=== PATIENT | male | born 1990 | race Caucasian/White ===

== ENCOUNTER 2017-02-07 14:01 | Inpatient (IN) | payer OTHER ==
[2017-02-07] MEDS ORDERED: Adacel (T-DAP) 0.5 ML VIAL ONE (14:16)
[2017-02-07] MEDS ORDERED: Fentanyl 100 MCG/2 ML VIAL ONE ×2 (14:22→17:06)
[2017-02-07] MEDS ORDERED: CEFAZOLIN/Water 2 GM/20 ML SYRINGE ONE (14:23)
[2017-02-07 14:30] LABS: Mean Corpuscular HGB CONC 34.1 g/dL (32.0-36.0); Mean Corpuscular Hemoglobin 32.4 pg (27.0-31.0); Mean Corpuscular Volume 95.1 fl (80.0-94.0); Mean Platelet Volume 6.7 fL (7.4-10.4); Platelet Count 350 thou/uL (130-400); RBC Distribution Width 11.7 % (11.5-14.5); Red Blood Cell (RBC) Count 4.33 mill/uL (4.70-6.10); White Blood Cell (WBC) Count 8.2 thou/uL (4.8-10.8)
[2017-02-07 14:32] LABS: Prothrombin Time 13.5 SEC (12.0-14.7)
[2017-02-07 14:46] LABS: ALT (SGPT) 25 U/L (8-55); AST (SGOT) 26 U/L (5-34); Albumin 4.7 g/dL (3.5-5.0); Alkaline Phosphatase 52 U/L (40-150); Anion Gap 14 mmol/L (10-20); BUN (Urea Nitrogen) 19 mg/dL (8.9-20.6); Bilirubin, Total 0.5 mg/dL (0.2-1.2); Calc. Creatinine Clearance 0 mL/min (70-130); Calcium 9.8 mg/dL (7.8-10.44); Carbon Dioxide 25 mmol/L (22-29); Chloride 103 mmol/L (98-107); Estimated GFR-MDRD 70; Globulin 2.7 g/dL (2.4-3.5); Glucose 119 mg/dL (70-105); Potassium 3.6 mmol/L (3.5-5.1); Protein, Total 7.4 g/dL (6.0-8.3); Sodium 138 mmol/L (136-145)
[2017-02-07 14:47] LABS: Lymphocytes 77 % (21-51); MDiff Complete? YES; Monocytes 7 % (0-10); Neutrophil 16 % (42-75); PLT Morphology Comment Appears Adequate
--- NOTE | 2017-02-07 14:53 | RAD ---
CHEST ONE VIEW: History: Trauma. Hand injury. Comparison: None. FINDINGS: Lungs are clear. No pneumothorax or effusion. Cardiac mediastinal contours are within normal limits. No acute osseous abnormality. IMPRESSION: No acute intrathoracic abnormality. POS: [facility]
--- NOTE | 2017-02-07 14:54 | RAD ---
RIGHT WRIST RADIOGRAPH THREE VIEWS: Date: 02-07-17 Provided Clinical History: Right wrist pain status post injury. FINDINGS: There is no evidence for fracture or other acute osseous abnormality. Alignment appears anatomic. Nga nt spaces appear preserved. IMPRESSION: No evidence for an acute osseous abnormality. POS: [facility]
--- NOTE | 2017-02-07 14:55 | RAD ---
RIGHT HAND RADIOGRAPHS THREE VIEWS: Date: 02-07-17 Provided Clinical History: Right hand injury. FINDINGS: No evidence for fracture or other acute osseous abnormality. Alignment appears anatomic. Joint spaces appear preserved. No evidence for radiopaque foreign body. Laceration is noted involving the soft ti ssues between the first and second rays. IMPRESSION: No evidence for fracture or radiopaque foreign body. POS: [facility]
[2017-02-07] MEDS ORDERED: Ketorolac Tromethamine 30 MG/ML VIAL ONE ×2 (15:50→16:37)
[2017-02-07] MEDS ORDERED: Gentamicin 80 MG/2 ML VIAL ONE (15:50)
[2017-02-07] MEDS ORDERED: cloNIDine 0.1 MG TAB ONE (15:51)
[2017-02-07] MEDS ORDERED: Pregabalin 50 MG CAP PO SCH (16:00)
[2017-02-07] MEDS ORDERED: Penicillin G Potassium 3 MILL.UNITS in Sodium Chloride 0.9% 50 ML IVPB SCH (16:00)
[2017-02-07] MEDS ORDERED: Gentamicin Sulfate 80 MG in Premix Bag 1 BAG IVPB ONE (16:00)
[2017-02-07] MEDS ORDERED: ePHEDrine/0.9% NaCl/PF SYRINGE 50 mg/10 ml ONE (16:37)
[2017-02-07] MEDS ORDERED: Glycopyrrolate 0.2 MG/ML 5 ML SYRINGE ONE (16:37)
[2017-02-07] MEDS ORDERED: Succinylcholine Chloride 20 MG/ML 10 ml SYRINGE FS ONE (16:37)
[2017-02-07] MEDS ORDERED: Lidocaine 1% PF 5 ML VIAL ONE (16:37)
[2017-02-07] MEDS ORDERED: Ondansetron HCl/PF 4 MG/2 ML Vial ONE (16:37)
[2017-02-07] MEDS ORDERED: Propofol 200 MG/20 ML VIAL ONE (16:37)
[2017-02-07] MEDS ORDERED: Dexamethasone 20 MG/5 ML VIAL ONE (16:37)
[2017-02-07] MEDS ORDERED: Bupivacaine PF 0.5% 30 ML VIAL ONE (16:56)
[2017-02-07] MEDS ORDERED: Bacitracin Zinc Ointment 30 gm TUBE ONE (16:57)
[2017-02-07] MEDS ORDERED: Hetastarch 6% 500 ML 0 ML ONE (17:19)
[2017-02-07] MEDS ORDERED: Midazolam HCl 2 mg/2 ml Vial ONE (17:36)
[2017-02-07] MEDS ORDERED: Meperidine HCl/PF 25 MG/ML VIAL SLOW IVP PRN (18:28)
[2017-02-07] MEDS ORDERED: Morphine Sulfate 2 MG/ML SYRINGE SLOW IVP PRN (18:28)
[2017-02-07] MEDS ORDERED: HYDROmorphone 2 MG/ML VIAL SLOW IVP PRN (18:28)
[2017-02-07] MEDS ORDERED: Promethazine HCl 25 MG/ML VIAL SLOW IVP PRN (18:28)
[2017-02-07] MEDS ORDERED: Sodium Chloride 0.9% 1,000 ML IV SCH (20:00)
[2017-02-07] MEDS: HYDROcodone/Acetaminophen 7.5/325 mg Tablet PO PRN ×2 (20:58→21:54)
[2017-02-07] MEDS: CEFAZOLIN 1 GM, Syringe 2.5 ML in Sterile Water 7.5 ML SLOW IVP SCH (21:00)
[2017-02-07] MEDS ORDERED: Dextrose 5% in Water 1,000 ML IV PRN (21:06)
[2017-02-07] MEDS ORDERED: Dextrose 50% Abboject 50 ML SYRINGE SLOW IVP PRN (21:06)
[2017-02-07] MEDS: Ascorbic Acid 500 mg Chewable Tablet PO SCH (21:49)
[2017-02-07] MEDS: Pregabalin 50 MG CAP PO SCH (21:50)
[2017-02-07] MEDS: Penicillin G Potassium 3 MILL.UNITS in Sodium Chloride 0.9% 50 ML IVPB SCH (21:51)
[2017-02-07] MEDS: Gentamicin Sulfate 80 MG in Premix Bag 1 BAG IVPB SCH (22:07)
[2017-02-07 22:23] VITALS: BMI 25.4
[2017-02-07] MEDS: Ketorolac Tromethamine 30 MG/ML VIAL IVP SCH (23:28)
--- NOTE | 2017-02-08 00:24 | HP ---
DATE OF ADMISSION: 02/07/2017 ADMITTING PHYSICIAN: Martín Ludwig DO CONSULTING PHYSICIAN: Dr. Jac Granados, Orthopedics. HISTORY OF PRESENT ILLNESS: The patient is a 26-year-old male who was at work today when he sustained a crush injury to his right hand, when his hand was caught in the hydraulics of a backhoe. ER physician reported that the patient arrived with extensive laceration to the right hand with muscle tissue sticking out at the lateral base of his index finger. Range of motion was limited to the right hand and he was unable to be move his hand other from a flexion position. The patient is experiencing numbness and tingling in the hand and fingers. Trauma Service has been consulted for admission and management. Dr. Granados, Orthopedics, has been consulted for fixation of right hand injury. Dr. Granados is currently at bedside and preparing to take patient to the OR. The patient's hand has had dressing applied. PAST MEDICAL HISTORY: The patient denies any significant past medical history. SOCIAL HISTORY: Alcohol socially, weekly. Drug use, none. Tobacco use, none. PAST SURGICAL HISTORY: None. ALLERGIES: No known drug allergies. CURRENT MEDICATIONS: None. REVIEW OF SYSTEMS: Other than as listed above, review of systems is negative. PHYSICAL EXAMINATION: VITAL SIGNS: Blood pressure 119/69, pulse 44, respirations 12, temperature 98.4 , pain 7/10, O2 sat 97% on room air. GENERAL: Well-developed, well-nourished male in no acute distress. HEENT: Normocephalic, atraumatic. PULMONARY: Bilateral breath sounds clear. No respiratory distress. CARDIOVASCULAR: Regular rate and rhythm. Heart sounds normal. ABDOMEN: Soft, nontender, nondistended. EXTREMITIES: Bilateral lower extremities, neurovascularly intact. No trauma noted. Left upper extremity, neurovascularly intact. No trauma noted. Right upper extremity, right hand injury with bulky dressing applied. Range of motion limited to right hand and fingers. Pain with light touch in the right hand and fingers. Decreased sensation in the right hand and fingers. NEUROLOGIC: GCS of 15, awake, alert, oriented x3. DIAGNOSTIC IMAGING: No fractures noted on x-rays. LABORATORY STUDIES: WBC 8.2, hemoglobin 14.0, hematocrit 41.0, and platelets 350. Sodium 138, potassium 3.6, chloride 103, creatinine 1.25. Creatine kinase 206. ASSESSMENT: A 26-year-old male status post crush injury to right hand. PLAN: Dr. Granados has been consulted and is currently at bedside. He is planning emergent surgical intervention for repair of right hand. After discussion with Dr. Granados, the patient will be admitted to the ICU for close neurovascular monitoring. UA and urine myoglobin to be sent. We will trend creatine kinase. IV antibiotics per Dr. Granados's recommendations. Tetanus given in ED. The patient will be admitted to ICU postoperatively. The patient was reviewed with Dr. Ludwig, attending trauma surgeon, who agrees with assessment and plan. ANAND
[2017-02-08] MEDS: Penicillin G Potassium 3 MILL.UNITS in Sodium Chloride 0.9% 50 ML IVPB SCH ×5 (01:07→17:23)
[2017-02-08] MEDS: CEFAZOLIN 1 GM, Syringe 2.5 ML in Sterile Water 7.5 ML SLOW IVP SCH ×4 (02:05→21:27)
[2017-02-08] MEDS: HYDROcodone/Acetaminophen 7.5/325 mg Tablet PO PRN ×4 (02:55→15:44)
[2017-02-08 04:29] LABS: #Monocytes 0.2 thou/uL (0.11-0.59); #Neutrophils 8.2 thou/uL (1.40-6.50); %Basophils 0.1 % (0.0-1.0); %Eosinophils 0.2 % (0.0-10.0); %Lymphocytes 19.5 % (21.0-51.0); %Monocytes 1.8 % (0.0-10.0); %Neutrophils 78.4 % (42.0-75.0); Hemoglobin 12.6 g/dL (14.0-18.0); Mean Corpuscular HGB CONC 33.2 g/dL (32.0-36.0); Mean Corpuscular Hemoglobin 31.9 pg (27.0-31.0); Mean Platelet Volume 7.1 fL (7.4-10.4); Platelet Count 311 thou/uL (130-400); RBC Distribution Width 11.7 % (11.5-14.5); Red Blood Cell (RBC) Count 3.95 mill/uL (4.70-6.10); White Blood Cell (WBC) Count 10.4 thou/uL (4.8-10.8)
[2017-02-08 04:43] LABS: Anion Gap 13 mmol/L (10-20); BUN (Urea Nitrogen) 15 mg/dL (8.9-20.6); Calc. Creatinine Clearance 119 mL/min (70-130); Calcium 9.1 mg/dL (7.8-10.44); Carbon Dioxide 23 mmol/L (22-29); Chloride 106 mmol/L (98-107); Estimated GFR-MDRD 89; Glucose 137 mg/dL (70-105); Potassium 4.4 mmol/L (3.5-5.1); Sodium 138 mmol/L (136-145)
[2017-02-08] MEDS: Ketorolac Tromethamine 30 MG/ML VIAL IVP SCH ×3 (06:09→17:23)
[2017-02-08] MEDS: Gentamicin Sulfate 80 MG in Premix Bag 1 BAG IVPB SCH ×2 (06:10→15:00)
--- NOTE | 2017-02-08 08:24 | OP ---
DATE OF SURGERY: 02/07/2017 TIME: 1924. SURGEON: Jac Granados M.D. ANESTHESIA: Dr. Starkey, anesthesiologist. General LMA technique augmented by 8 mL 0.5% Marcaine wi thout epinephrine block at multiple sites along the wrist and hand. PREOPERATIVE DIAGNOSES: 1. Right first dorsal interosseous muscle avulsion with compartment syndrome post crush right hand s econdary to a backhoe at work. 2. Right wrist fourth carpometacarpal joint, open joint. SPECIMEN REMOVED: Necrotic first web muscle to pathology for both culture and specimen to prove necr osis. ESTIMATED BLOOD LOSS: 25 mL. TOURNIQUET TIME: 15 minutes. FINDINGS: 1. Hematoma approximately 3-5 mL within the carpal canal and a partial tear of the transverse carpal ligament distal one half. 2. Necrotic muscle right first web space. 3. Intact digital nerves, arteries, thumb and index finger: Had normal two-point discrimination and Doppler preop and intraoperatively did not see any lacerations to disprove this. 4. He has a 1.0 cm laceration over the right dorsal fourth and fifth carpometacarpal joint exposed a nd the cartilage chondral surfaces and bony regions. PROCEDURE PERFORMED: 1. Debridement open wrist joint, carpometacarpal joint fourth and fifth with the hamate. 2. Compartment syndrome release, four-digit incision technique. 3. Debridement, first dorsal interosseous muscle. I have reviewed deep debridement [id number]. 4. Evacuation of hematoma, carpal canal. 5. Median nerve neuroplasty at the wrist. COMPLICATIONS: None. INDICATION: Patient had a work accident where he caught his hand against a backhoe and immediately n oticed pain, and he presented to the emergency room with inability to move his digits, posturing and extension, had pain with stretch, small laceration of the dorsum of the hand with swelling in his the davon compartment, first dorsal compartment with exposed muscle belly and laceration of muscle belly at the first dorsal webspace. He had a stretch pain and hyperesthesias indicative of early compartment syndrome. DESCRIPTION OF PROCEDURE: After successful general LMA technique augmented by the Anesthesia listed above, the patient had a timeout done. Appropriate, limb was prepped and draped, and then we exsangu inated the limb, tourniquet inflated to 250 mmHg pressure. We then outlined incisions to use as open wounds on the dorsum to create a 4-5 and a 2-3 incision to release the compartments around this area dorsally, this was done. We connected the laceration down to the dorsal ulnar carpal wrist area, he re we found laceration with extended 2 cm proximal show visible chondral surface of the fourth carpom etacarpal joint through this 2 cm wound, so we then irrigated this with 3 liters normal saline and Pu lsavac pressure with antibiotics inside. We then visualized the dorsal webspace where at the first webspace, the junction of palmar and dorsal skin, there was extruding muscle. This proved to be part of the muscle belly of the duct interosseo us to the index finger. We then abduct to the index finger. We then debrided the muscle to be reach ed viable muscle, which we removed almost 60% of the exposed muscle. We then inspected for dirt part icles. After dirt particles, then began formal irrigation after debridement down to and including de ep muscle and fascia was accomplished. Then, we went and performed the extended median nerve neuropl asty incision beginning of 5 cm proximal to the volar wrist flexion crease and across the wrist in a zigzag pattern down to Mcnamara's cardinal lines. We opened the subcutaneous tissue, visualized the tr anscarpal ligament 50% along with a moderate sized hematoma 3-5 mL. It was evacuated via forceps and irrigation. We released all the distal volar fascia at the wrist level, release transcarpal ligamen t, now the median nerve neuroplasty was completed. We inspected the nerve found to be intact. The h ematoma was now gone, elevated and we performed an adequate debridement of all the open wounds, so we performed the irrigation and released the tourniquet. Here, we will use 5 liters normal salin e and Pulsavac pressure to irrigate and clean the wound with antibiotics inside. The patient had no evidence of loss of circulation. No excessive bleeding except for one dorsal vein ; however, we had made our incision, between the second and third in the metacarpals in the fourth an d fifth and released the compartment either side of each metacarpal including the ulnar aspect of the small and radial aspect index finger. Now, we had complete compartment releases, necrotic muscle de brided. Hematoma evacuated and we irrigated this area with the remaining 2 liters normal saline and Pulsavac pressure. Now, we released the tourniquet, obtained hemostasis, placed a wet to dry packing on all the wounds, covered with 4 x 4s on top with an ABD and then Jesús wrap. The patient had marked improved motion without antalgia in his right upper extremity and phalangeal joints the day be fore surgery and is resting comfortably at the time of this dictation.
[2017-02-08] MEDS: Pregabalin 50 MG CAP PO SCH ×2 (08:52→20:52)
[2017-02-08] MEDS: Ascorbic Acid 500 mg Chewable Tablet PO SCH ×2 (08:54→20:52)
[2017-02-08] MEDS: Morphine 4 MG/ML VIAL SLOW IVP PRN ×2 (09:29→17:50)
[2017-02-08] MEDS: Meperidine HCl/PF 25 MG/ML VIAL IM PRN ×2 (11:47→19:28)
[2017-02-08] MEDS ORDERED: Gentamicin Sulfate 80 MG in Premix Bag 1 BAG IVPB SCH (14:45)
--- NOTE | 2017-02-08 15:48 | PRG ---
DATE OF SERVICE: 02/08/2017 ATTENDING PHYSICIAN: Dr. Martín Ludwig. This is Mary Schultz N.P. dictating a daily progress note for Martín Ludwig D.O. SUBJECTIVE: A 26-year-old male status post crush injury of the right hand. He was taken to the OR last night by Dr. Granados for I&D of the right hand. He has remained hemodynamically stable. His hand has regained some sensation since the operative procedure. Pain is well controlled this a.m. OBJECTIVE: VITAL SIGNS: Temperature 98.1, heart rate 64, respirations 12, O2 sat 100% room air, blood pressure 110/66. GENERAL: Resting in chair. No acute distress. PULMONARY: Respirations are even and unlabored. No respiratory distress. CARDIOVASCULAR: Regular rate and rhythm. Heart sounds normal. ABDOMEN: Soft, nontender, and nondistended. EXTREMITIES: Bilateral lower extremities. Neurovascularly intact. No trauma noted. Left upper extremity neurovascular intact. No trauma noted. Right upper extremity, right hand with bulky dressing. Able to slightly move the fingers. ASSESSMENT: 1. A 26-year-old male status post crush injury to right hand. 2. Status post incision and debridement of right hand wound. PLAN: 1. Transition from IV to oral analgesia. 2. Start regular diet. 3. Transfer out of ICU to surgical floor. 4. Discontinue IV fluids. 5. Antibiotics per orders by Dr. Granados. LABORATORY DATA: WBC 10.4 today, up from 8.2 yesterday. Continue to monitor. Hemoglobin and hematocrit 12.6/37.9 down from 14.0/41.1 yesterday. Continue to monitor. Transfuse as indicated. Creatinine kinase 338 this morning from 206 yesterday. Continue to monitor. The patient was seen and examined by Dr. Ludwig, attending trauma surgeon, who agrees with the assessment and plan. ANAND
[2017-02-08 16:58] LABS: Hemoglobin 13.2 g/dL (14.0-18.0)
[2017-02-08 17:54] LABS: Bilirubin Negative (Negative); Blood, Urine Negative (Negative); Clarity CLEAR (Clear); Glucose, Urine (Dipstick) Negative (Negative); Leukocyte Negative (Negative); Nitrite Negative (Negative); Protein, Urine (Dipstick) Negative (Neg-Trace); Specific Gravity, Urine 1.014 (1.002-1.036); Urobilinogen 0.2 mg/dL (0.2-1.0)
[2017-02-08 18:21] LABS: Bacteria/HPF None Seen HPF (None Seen); Hyaline Casts/LPF NONE SEEN LPF (0-3 Hyaline); RBC/HPF None Seen HPF (0-3); Squamous Epithelial None Seen HPF (0-3); WBC/HPF 0-3 HPF (0-3)
[2017-02-09] MEDS: D5 1/2 NS w/20 mEq KCL 1,000 ML IV SCH ×3 (00:38→22:50)
[2017-02-09] MEDS: Ketorolac Tromethamine 30 MG/ML VIAL IVP SCH ×5 (00:38→19:32)
[2017-02-09] MEDS: CEFAZOLIN 1 GM, Syringe 2.5 ML in Sterile Water 7.5 ML SLOW IVP SCH ×4 (02:18→21:07)
[2017-02-09] MEDS: HYDROcodone/Acetaminophen 7.5/325 mg Tablet PO PRN (02:23)
[2017-02-09 06:09] LABS: Eosinophils 2 % (0-10); Hemoglobin 11.8 g/dL (14.0-18.0); Lymphocytes 42 % (21-51); MDiff Complete? YES; Mean Corpuscular Volume 96.9 fl (80.0-94.0); Mean Platelet Volume 6.9 fL (7.4-10.4); Monocytes 6 % (0-10); Neutrophil 50 % (42-75); PLT Morphology Comment Appears Adequate; Platelet Count 252 thou/uL (130-400); RBC Distribution Width 11.6 % (11.5-14.5); Red Blood Cell (RBC) Count 3.67 mill/uL (4.70-6.10)
[2017-02-09] MEDS: Ascorbic Acid 500 mg Chewable Tablet PO SCH ×2 (08:50→21:07)
[2017-02-09] MEDS: Pregabalin 50 MG CAP PO SCH ×2 (08:50→21:06)
[2017-02-09] MEDS ORDERED: Clindamycin/D5W 600 mg/50 ml Premix Bag ONE (11:58)
[2017-02-09] MEDS ORDERED: Morphine 4 MG/ML VIAL ONE (12:06)
--- NOTE | 2017-02-09 12:29 | PRG ---
DATE OF SERVICE: 02/09/2017 ATTENDING PHYSICIAN: Dr. Martín Ludwig. This is Mary Schultz NP dictating a daily progress note for Dr. Martín Ludwig. SUBJECTIVE: This is a 26-year-old male status post crush injury of the right hand. POD #2, status post I&D of the right hand. He has remained hemodynamically stable. He was transferred from the ICU to the surgical floor last p.m. He has regained some sensation since the initial operative procedure. Pain is well controlled this a.m. OBJECTIVE: VITAL SIGNS: Temperature 98.2, pulse 43, respirations 16, O2 sat 97% room air, and blood pressure 105/63. GENERAL: Resting in chair, in no acute distress. PULMONARY: Respirations even. Unlabored. No respiratory distress. CARDIOVASCULAR: Regular rate and rhythm. Heart sounds normal. ABDOMEN: Soft, nontender, nondistended. EXTREMITIES: Bilateral lower extremities, neurovascularly intact. No trauma noted to the lateral lower extremities. Left upper extremity, neurovascularly intact. No trauma noted in the left upper extremity. Right upper extremity with right hand with bulky dressing. Able to slightly move fingers. Sensation present in all digits. Cap refill brisk. ASSESSMENT: 1. A 26-year-old male status post crush injury of right hand. 2. Status post incision and drainage of right hand wound. 3. Dr. Granados to bedside last night for initial dressing change. PLAN: 1. Dr. Granados to take the patient back to the OR this afternoon for repeat procedure on hand. 2. N.p.o. until after procedure. Continue IV fluids. 3. Continue to monitor vascular status of the right hand. 4. Antibiotics per orders by Dr. Granados. 5. Continue analgesia as ordered. The patient was reviewed with Dr. Ludwig, who agrees with the assessment and plan. [facility]ITAL[facility]
[2017-02-09] MEDS ORDERED: Sodium Chloride 0.9% 30 ML ONE (12:49)
[2017-02-09] MEDS ORDERED: Midazolam HCl 2 mg/2 ml Vial ONE (13:11)
[2017-02-09] MEDS ORDERED: Fentanyl 100 MCG/2 ML VIAL ONE ×5 (13:11→16:42)
[2017-02-09] MEDS ORDERED: Bupivacaine PF 0.5% 30 ML VIAL ONE (14:03)
[2017-02-09] MEDS ORDERED: Ondansetron HCl/PF 4 MG/2 ML Vial IVP PRN (15:25)
[2017-02-09] MEDS ORDERED: Promethazine HCl 25 MG/ML VIAL SLOW IVP PRN (15:25)
[2017-02-09] MEDS ORDERED: Promethazine HCl 25 MG/ML VIAL IM PRN (15:25)
[2017-02-09] MEDS ORDERED: Promethazine HCl 25 MG/ML VIAL ONE (16:18)
[2017-02-09] MEDS ORDERED: Metoclopramide HCl 10 MG/2 ML VIAL ONE (17:03)
[2017-02-09] MEDS ORDERED: Ondansetron HCl/PF 4 MG/2 ML Vial ONE (17:03)
[2017-02-09] MEDS ORDERED: Propofol 200 MG/20 ML VIAL ONE (17:03)
[2017-02-09] MEDS ORDERED: diphenhydrAMINE 50 MG/ML VIAL ONE (17:03)
[2017-02-09] MEDS ORDERED: Dexamethasone 20 MG/5 ML VIAL ONE (17:03)
[2017-02-09] MEDS ORDERED: Lidocaine 1% PF 5 ML VIAL ONE (17:03)
[2017-02-09] MEDS: Meperidine HCl/PF 25 MG/ML VIAL IM PRN (21:28)
[2017-02-09] MEDS: Promethazine HCl 25 MG/ML VIAL IM PRN (21:29)
[2017-02-10] MEDS: Ketorolac Tromethamine 30 MG/ML VIAL IVP SCH ×5 (00:08→23:37)
--- NOTE | 2017-02-10 01:17 | OP ---
DATE OF PROCEDURE: 02/09/2017 TIME: 1415 hours. PREOPERATIVE DIAGNOSIS: Open wounds, palmar and dorsal wrist at first webspace, right hand. POSTOPERATIVE DIAGNOSIS: No gross infection, no hematoma found to include deep palmar carpal and ely dash carpal wrist, the intermetacarpal area of the dorsal compartments, palmar wrist deep compartment, and the first webspace as thenar region. PROCEDURE PERFORMED: 1. Debridement, 1043 level, all of the wounds except 4. 2. Debridement of the proximal 2 cm wound with underlying glenoid medial hemijoint capsule has been avulsed leaving an open wrist joint. Here, this was debrided 57975 level using the following t echniques: A. Curette, Adsons, tenotomy scissors, Pulsavac with antibiotics inside pressure. B. Depth was into and including the joint for the [address] and down to and including the bones for the remaining wounds. C. Excisional technique. D. There was no gross infection. No contamination seen. Minimal hematoma formation seen. No necro tic muscle including the dorsal first webspace. 3. Application of vacuum-assisted closure dressing of wounds using the help intraop of the Wound Car e team expertly can create connection between different wounds, different VAC system to utilize laura r their capabilities. BLOOD LOSS: 20 mL TOURNIQUET TIME: None. No gross facial or muscle mass loss is seen. INDICATIONS: The patient to have a staged wound management after a severe crush injury with marked d orsal and first webspace interosseous muscle mass loss. Although his numbness and tingling is greate r in the crease, return for second look in case there is more nonviable muscle and/or he has somewhat alternative for recovery. DESCRIPTION OF PROCEDURE: After successful general LMA technique, the limb was prepped and draped. No tourniquet was inflated because the limb is without exsanguinating. No tourniquet was applied. W e then opened all wounds with a large retractors and including the bones and dorsal and palmar wrist wound. Then, especially at the capsule of the capitate region, we were able to lift up t he joint capsule, irrigate this with spinal anesthesia and normal saline and the same thing was done to dorsal and palmar wounds. Now, we have performed all the debridements using the technique as list ed above and "debridement." Then, we obtained hemostasis, and then the Wound Care team x2 individual s came in and performed a stellar and skilled wound VAC application using interconnections, plastic a s book ends, and placed it back onto and ran it in another location on the dorsal hand. Then, these were secured with excellent low leak potential, excellent visual suction, and we then put a Kerlix, A daptic, and a bulky hand dressing with lightly applied Jesús wrap and no diminution of the seal.
[2017-02-10] MEDS: CEFAZOLIN 1 GM, Syringe 2.5 ML in Sterile Water 7.5 ML SLOW IVP SCH ×4 (03:05→20:29)
[2017-02-10] MEDS: D5 1/2 NS w/20 mEq KCL 1,000 ML IV SCH ×2 (05:47→17:15)
[2017-02-10] MEDS: HYDROcodone/Acetaminophen 7.5/325 mg Tablet PO PRN ×4 (08:00→19:32)
[2017-02-10] MEDS: Ascorbic Acid 500 mg Chewable Tablet PO SCH ×2 (08:00→20:30)
[2017-02-10] MEDS: Pregabalin 50 MG CAP PO SCH ×2 (09:46→20:43)
--- NOTE | 2017-02-10 16:46 | PRG ---
DATE OF SERVICE: 02/10/2017 ATTENDING PHYSICIAN: Martín Ludwig DO SUBJECTIVE: This is a 26-year-old male status post crush injury to the right hand. He was initially taken to the OR on day of admission for I&D of the right hand. He was then managed in the ICU and subsequently transferred to the surgical floor where he remained stable. He once again returned to the OR yesterday with Dr. Granados for continued planned procedures of right hand. He is now seen ambulatory on the floor with a wound VAC in place. OBJECTIVE: VITAL SIGNS: Temperature 98.3, pulse 93, blood pressure 120/68, respirations 14 , and O2 sat 99%. GENERAL: Well-developed, well-nourished male in no acute distress. PULMONARY: Respirations are even and unlabored. No respiratory distress. CARDIOVASCULAR: Regular rate and rhythm. ABDOMEN: Soft, nontender, nondistended. EXTREMITIES: All extremities within normal limits with the exception of a right hand has negative pressure wound therapy VAC dressing in place and bulky dressing. Moves all digits. Cap refill brisk. NEUROLOGIC: GCS of 15. ASSESSMENT: 1. A 26-year-old male status post crush injury to right hand. 2. Status post multiple staged procedures for debridement and repair of right hand injury. 3. Negative pressure wound therapy VAC in place, functioning normally. PLAN: 1. The patient return to OR sometime in the next few days with Dr. Granados for planned procedure. 2. Continue negative pressure wound therapy VAC as ordered. 3. Antibiotics per Dr. Granados. 4. Encourage ambulation as tolerated. 5. Plan for home with wound VAC per patient report. The patient was reviewed with Dr. Ludwig, who agrees with the assessment and plan. [facility]
[2017-02-10] MEDS: Meperidine HCl/PF 25 MG/ML VIAL IM PRN (21:55)
[2017-02-10] MEDS: Promethazine HCl 25 MG/ML VIAL IM PRN (21:56)
[2017-02-11] MEDS: CEFAZOLIN 1 GM, Syringe 2.5 ML in Sterile Water 7.5 ML SLOW IVP SCH ×2 (03:35→08:54)
[2017-02-11] MEDS: D5 1/2 NS w/20 mEq KCL 1,000 ML IV SCH ×3 (03:43→21:32)
[2017-02-11] MEDS: Ketorolac Tromethamine 30 MG/ML VIAL IVP SCH (06:03)
[2017-02-11] MEDS: HYDROcodone/Acetaminophen 7.5/325 mg Tablet PO PRN ×3 (08:55→17:55)
[2017-02-11] MEDS: Pregabalin 50 MG CAP PO SCH ×2 (08:57→20:08)
[2017-02-11] MEDS: Ascorbic Acid 500 mg Chewable Tablet PO SCH ×2 (08:59→20:08)
[2017-02-11] MEDS: Sulfameth/Trimethoprim DS 800-160mg TAB PO SCH ×2 (08:59→20:10)
--- NOTE | 2017-02-11 13:39 | PRG ---
DATE OF SERVICE: 02/11/2017 ATTENDING PHYSICIAN: Dr. Martín Ludwig. This is Mary Schultz NP, dictating daily progress note for Dr. Martín Ludwig. SUBJECTIVE: A 26-year-old male status post crush injury to the right hand. He has been taken to the OR twice for I&D of the right hand by Dr. Granados. He is stable on the surgical floor with negative pressure wound therapy VAC in place. He has had no adverse events. OBJECTIVE: VITAL SIGNS: Temperature 97.9, pulse 52, respirations 16, O2 sat 99% on room air, and blood pressure 124/77. GENERAL: Well-developed, well-nourished male, in no acute distress. HEENT: Atraumatic, normocephalic. PULMONARY: Respirations even, unlabored. No respiratory distress. CARDIOVASCULAR: Regular rate and rhythm. Heart sounds normal. ABDOMEN: Soft, nontender, nondistended. EXTREMITIES: All extremities within normal limits with the exception of right hand with negative pressure wound therapy VAC dressing in place. Moves all digits. Cap refill brisk. NEUROLOGIC: GCS of 15. ASSESSMENT: 1. A 26-year-old male status post crush injury to the right hand. 2. Status post multiple staged procedures for debridement and repair of right hand injury. 3. Negative pressure wound therapy VAC in place, functioning normally. PLAN: 1. The patient will return to the OR on Sunday, which is 2 days from now, with Dr. Granados for planned procedure. 2. Continue negative pressure wound therapy VAC as ordered. 3. Antibiotics per Dr. Granados. 4. Allow for ambulation as tolerated. 5. Continue current pain medication regimen. The patient was reviewed with Dr. Ludwig, attending trauma surgeon, who agrees with the assessment and plan. ANAND
[2017-02-11] MEDS: Meperidine HCl/PF 25 MG/ML VIAL IM PRN (22:02)
[2017-02-12] MEDS: D5 1/2 NS w/20 mEq KCL 1,000 ML IV SCH ×2 (07:27→15:43)
[2017-02-12] MEDS: HYDROcodone/Acetaminophen 7.5/325 mg Tablet PO PRN ×4 (07:30→20:49)
[2017-02-12] MEDS: Ascorbic Acid 500 mg Chewable Tablet PO SCH ×2 (09:02→20:45)
[2017-02-12] MEDS: Pregabalin 50 MG CAP PO SCH ×2 (09:02→20:45)
[2017-02-12] MEDS: Sulfameth/Trimethoprim DS 800-160mg TAB PO SCH ×2 (09:03→20:45)
--- NOTE | 2017-02-12 18:36 | PRG ---
DATE OF SERVICE: 02/12/2017 ATTENDING PHYSICIAN: Dr. Douglas Mancuso. This is Mary Schultz, nurse practitioner, dictating a daily progress note for Dr. Douglas Mancuso. SUBJECTIVE: A 26-year-old male status post crush injury to the right hand. He has been taken to the OR twice for I&D of the right hand by Dr. Granados. He remained stable in the surgical floor with n egative pressure wound therapy VAC in place. He has had no adverse events on the surgical floor. Pa in has been well controlled. OBJECTIVE: VITAL SIGNS: This morning, temperature 97.6, pulse 54, respirations 14, O2 sat 98% on room air, bloo d pressure 142/88. GENERAL: Well-developed, well-nourished male, in no acute distress. HEENT: Atraumatic, normocephalic. PULMONARY: Respirations even, unlabored. No respiratory distress. CARDIOVASCULAR: Regular rate and rhythm. Heart sounds normal. ABDOMEN: Soft, nontender, nondistended. EXTREMITIES: All extremities within normal limits with the exception of the right hand with negative pressure wound VAC therapy dressing in place. Moves all digits. Cap refill brisk. NEUROLOGIC: GCS of 15. ASSESSMENT: 1. A 26-year-old male status post crush injury to the right hand. 2. Status post multiple staged procedures for debridement and repair of right hand injury. 3. Negative pressure wound VAC therapy in place. Functioning normally. PLAN: 1. The patient will return to the OR tomorrow with Dr. Granados for a planned continued procedure on the right hand. 2. Continue negative pressure wound VAC therapy as ordered. 3. Antibiotics per Dr. Granados. 4. N.p.o. after midnight. 5. Ambulation as tolerated. 6. Continue current pain medicine regimen. The patient was reviewed with Dr. Mancuso, who agrees with the assessment and plan.
[2017-02-13] MEDS: D5 1/2 NS w/20 mEq KCL 1,000 ML IV SCH ×2 (04:01→13:49)
[2017-02-13] MEDS ORDERED: Fentanyl 100 MCG/2 ML VIAL ONE ×2 (06:15→09:21)
[2017-02-13] MEDS ORDERED: Midazolam HCl 2 mg/2 ml Vial ONE (06:15)
[2017-02-13] MEDS ORDERED: Bacitracin Zinc Ointment 30 gm TUBE ONE (07:07)
[2017-02-13] MEDS ORDERED: CEFAZOLIN/Water 2 GM/20 ML SYRINGE ONE (07:21)
[2017-02-13] MEDS ORDERED: Bupivacaine PF 0.5% 30 ML VIAL ONE (08:10)
[2017-02-13] MEDS: Sulfameth/Trimethoprim DS 800-160mg TAB PO SCH ×2 (09:00→20:45)
[2017-02-13] MEDS ORDERED: Meperidine HCl/PF 25 MG/ML VIAL SLOW IVP PRN (09:15)
[2017-02-13] MEDS ORDERED: Morphine Sulfate 2 MG/ML SYRINGE SLOW IVP PRN (09:15)
[2017-02-13] MEDS ORDERED: HYDROmorphone 2 MG/ML VIAL SLOW IVP PRN (09:15)
[2017-02-13] MEDS ORDERED: Promethazine HCl 25 MG/ML VIAL SLOW IVP PRN (09:15)
[2017-02-13] MEDS: Morphine 4 MG/ML VIAL SLOW IVP PRN (10:01)
[2017-02-13] MEDS: Ascorbic Acid 500 mg Chewable Tablet PO SCH ×2 (10:59→20:45)
[2017-02-13] MEDS: HYDROcodone/Acetaminophen 7.5/325 mg Tablet PO PRN ×4 (11:00→23:40)
[2017-02-13] MEDS: Pregabalin 50 MG CAP PO SCH ×2 (11:06→20:45)
[2017-02-13] MEDS: Meperidine HCl/PF 25 MG/ML VIAL IM PRN (11:45)
[2017-02-13] MEDS ORDERED: Dexamethasone 20 MG/5 ML VIAL ONE (17:25)
[2017-02-13] MEDS ORDERED: Propofol 200 MG/20 ML VIAL ONE (17:25)
[2017-02-13] MEDS ORDERED: Lidocaine 1% PF 5 ML VIAL ONE (17:25)
[2017-02-13] MEDS ORDERED: Ondansetron HCl/PF 4 MG/2 ML Vial ONE (17:25)
[2017-02-13] MEDS ORDERED: Ketorolac Tromethamine 30 MG/ML VIAL IM SCH (18:00)
[2017-02-13] MEDS ORDERED: Ketorolac Tromethamine 30 MG/ML VIAL IVP SCH (18:00)
--- NOTE | 2017-02-13 23:33 | PRG ---
DATE OF SERVICE: 02/13/2017 SUBJECTIVE: This is a 26-year-old male status post right-hand crush injury. Patient had significant pain postoperatively, therefore discharge was held. This evening, patient reports pain has improved . He is eager for discharge in a.m. No further complaints. OBJECTIVE: VITAL SIGNS: Reviewed and stable. GENERAL: Patient is sitting in a chair, out of bed, appears comfortable. LUNGS: Breathing is nonlabored. EXTREMITIES: Lower extremity dressing clean, dry, and intact. ASSESSMENT AND PLAN: As documented in daily progress note. We will continue to monitor, continue ca re as ordered.
[2017-02-13] MEDS: Ibuprofen 800 MG TAB PO SCH (23:40)
[2017-02-14 08:50] VITALS: BP 108/62; TEMP 97.8
[2017-02-14] MEDS: Sulfameth/Trimethoprim DS 800-160mg TAB PO SCH (09:27)
[2017-02-14] MEDS: HYDROcodone/Acetaminophen 7.5/325 mg Tablet PO PRN (09:27)
[2017-02-14] MEDS: Ascorbic Acid 500 mg Chewable Tablet PO SCH (09:27)
[2017-02-14] MEDS: Pregabalin 50 MG CAP PO SCH (09:28)
[2017-02-14] MEDS: Ibuprofen 800 MG TAB PO SCH (09:29)
--- NOTE | 2017-02-15 14:03 | DIS ---
DATE OF ADMISSION: 02/07/2017 DATE OF DISCHARGE: 02/14/2017 ADMISSION DIAGNOSES: 1. Status post industrial accident. 2. Crush injury to right dominant hand. CONSULTATIONS: Hand Surgery, Dr. Granados PROCEDURES: The patient had multiple complex repairs to his hand. SUMMARY: The patient is a 26-year-old man, who was reportedly working near the hydraulics of the [employer] when his hand became crushed and tender between the device. The patient was able to excreted ou t of the backhoe and brought to the emergency department where he was evaluated and examined, noted t o have the above injuries. The patient will be taken emergently to the operating room by Dr. Savana reyna for the first of his procedures, which included debridement and irrigation. The patient would also have a wound VAC applied. Due to financial reasons, a home VAC was not able to be supplied, so the patient stayed here in the hospital until he underwent his second definitive procedure. The patient had some significant pain postoperatively after the second procedure, so he was kept 1 more night for pain control. At time of discharge, the patient was able to be controlled on p.o. medications. He was ambulatory. He was tolerating a diet. His bowel function returned. The patient will follow up with Dr. Granados in 6 days. The patient was discharged on oral pain medications and antibiotics per Dr. Granados's instructions.
== END 2017-02-14 14:04 | disposition home or self-care (01) | DRG 906 ==
LOC: ERS 14:01 → SDC 15:55 → CCU 20:40 → SJJU 02-08 18:36
PROVIDERS: ADMIT Surgery; ATTEND Surgery
PROC: 0KNC0ZZ Release Right Hand Muscle, Open Approach (ICD-10-PCS; 2017-02-07)
PROC: 01Q50ZZ Repair Median Nerve, Open Approach (ICD-10-PCS; 2017-02-07)
PROC: 0J9J0ZZ Drainage of Right Hand Subcutaneous Tissue and Fascia, Open Approach (ICD-10-PCS; 2017-02-07)
PROC: 0KD Muscles, Extraction (ICD-10-PCS; 2017-02-07)
PROC: 0RBN0ZZ Excision of Right Wrist Joint, Open Approach (ICD-10-PCS; principal; 2017-02-09)
DX: S67.41XA Crushing injury of right wrist and hand, initial encounter (principal); I96 Gangrene, not elsewhere classified; T79.A11A Traumatic compartment syndrome of right upper extremity, initial encounter; S66.921A Laceration of unspecified muscle, fascia and tendon at wrist and hand level, right hand, initial encounter; S61.210A Laceration without foreign body of right index finger without damage to nail, initial encounter; S67.190A Crushing injury of right index finger, initial encounter; S61.501A Unspecified open wound of right wrist, initial encounter; S61.411A Laceration without foreign body of right hand, initial encounter; S66.991A Other injury of unspecified muscle, fascia and tendon at wrist and hand level, right hand, initial encounter; S63.511A Sprain of carpal joint of right wrist, initial encounter; S61.511A Laceration without foreign body of right wrist, initial encounter
CPT/HCPCS: 36415; 36416; 71010; 80048; 80053; 81001; 82550; 83874; 85025; 85610; 85730; 86850; 86900; 86901; 88305; 90471; 90715; 96361; 96365; 96367; 96372; 96375; A4216; J0131; J0690; J1100; J1200; J1580; J1885; J2001; J2175; J2250; J2270; J2405; J2540; J2550; J2704; J2765; J3010; J3490; J7050; S0020